=== PATIENT | male | born 1990 | race Caucasian/White ===

== ENCOUNTER 2022-03-02 11:01 | Emergency (ER) | payer OTHER ==
[2022-03-02 13:13] LABS: HEMOGLOBIN 11.9 gm/dl (14.0-17.5); RED BLOOD COUNT 4.3 M/UL (4.20-5.50)
[2022-03-02 13:40] LABS: BUN/CREATININE RATIO 5 (0-10)
== END 2022-03-02 16:20 | disposition home or self-care (01) ==
LOC: ER1 11:01
PROVIDERS: Nurse Practitioner Family; Physician Assistant Medical
DX: S53.431A Radial collateral ligament sprain of right elbow, initial encounter (principal); S53.441A Ulnar collateral ligament sprain of right elbow, initial encounter; X58.XXXA Exposure to other specified factors, initial encounter
CPT/HCPCS: 73080; 80053; 80307; 85025; 85652; 86140; 96372; 99283; J1885